=== PATIENT | male | born 1975 | race African-American/Black ===

== ENCOUNTER 2018-04-28 19:17 | Emergency (ER) | payer MEDICARE, MEDICAID ==
[~2018-04-28] VITALS: Ht 175.3 cm; Wt 146.0 kg
[2018-04-28] MEDS ORDERED: KETOROLAC 60MG/2ML VIAL IM STA (21:23)
[2018-04-28] MEDS ORDERED: LIDOCAINE HCL/PF 1% 10 MG/ML 5ML VIAL IJ ONE (21:30)
[2018-04-28] MEDS ORDERED: BACITRACIN ZINC OINT UDPKT TOP ONE (21:30)
[2018-04-28 22:32] VITALS: BP 112/89
== END 2018-04-28 22:33 | disposition home or self-care (01) ==
LOC: ER 19:17
DX: S01.01XA Laceration without foreign body of scalp, initial encounter (principal); W10.8XXA Fall (on) (from) other stairs and steps, initial encounter; Y93.89 Activity, other specified; Y92.89 Other specified places as the place of occurrence of the external cause
CPT/HCPCS: 12011; 96372; 99283; J1885; J3490